=== PATIENT | female | born 1940 | race Caucasian/White ===

== ENCOUNTER 2019-11-14 14:46 | Outpatient (CLI) | payer MEDICARE, SELFPAY ==
--- NOTE | ~2019-11-14 | CT_ITS ---
EXAMINATION: CT brain wo con EXAM DATE: 11/14/2019 15:08 INDICATION: Severe temporal headache. Anticoagulated. TECHNIQUE: Spiral CT of the head was performed without contrast. Axial, coronal and sagittal images were reviewed. The dose-length product (DLP) for this examination was 605.33 mGy-cm. The exposure w as tailored according to patient size, and iterative reconstruction (ASIR) was used as additional dos e reduction technique. There is no prior study for comparison. FINDINGS: There is no acute intraparenchymal hemorrhage. No evidence of intraparenchymal brain mass lesion. No evidence of acute infarction. Please note that initial head CT has limited sensitivity f or small or acute infarctions. 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 There is mild periventricular and subcortical hypodensity, nonspecific but probably related to small vessel ischemic disease. There is mild prominence of the sulci and ventricles related to cer ebral atrophy. There is intracranial carotid arteriosclerosis. There are no extra-axial collection s. There is no mass effect or midline shift. Patient has had bilateral ocular lens surgery. Soft t issue is unremarkable. The visualized sinuses and mastoid air cells are well aerated. IMPRESSION: 1. No acute intracranial findings. 2. Chronic age related findings. 3. 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 Reviewed, dictated and finalized at location A. EW APPRAISER
[2019-11-14 15:00] LABS: Hematocrit 39.3 % (35.0-42.0); Hemoglobin 12.9 g/dL (11.7-13.8); Mean Corpuscular HGB Conc 32.8 g/dL (32.0-36.0); Mean Corpuscular Hemoglobin 33.5 pg (27.0-31.0); Mean Corpuscular Volume 102.1 fL (78.0-102.0); Mean Platelet Volume 10.7 fl (9.2-11.8); Platelet Count Result 212 K/mm3 (150-420); Red Blood Count 3.85 M/mm3 (4.20-5.40); Red Cell Distribution Width 13.1 % (11.6-14.4); White Blood Count 6.4 K/mm3 (4.8-10.8)
[2019-11-14 15:12] LABS: INR 1.8; Prothrombin Time 18.1 Seconds (9.64-11.0)
[2019-11-14 15:13] LABS: Hemoglobin A1C 6.7 % (<5.7)
[2019-11-14 15:18] LABS: Alanine Aminotransferase 18 U/L (14-59); Albumin Level 3.6 g/dL (3.4-5.0); Alkaline Phosphatase 77 U/L (46-116); Anion Gap 13.4 mmol/L (7-16); Aspartate Amino Transferase 22 U/L (15-37); Bilirubin,Total 0.5 mg/dL (0.00-1.00); Blood Urea Nitrogen 38 mg/dL (7-18); Calcium 8.7 mg/dL (8.5-10.1); Carbon Dioxide 28 mmol/L (21-32); Chloride 108 mmol/L (98-108); Estimated Glomerular Filt Rate 25; Glucose 110 mg/dL (70-99); Osmolality Calculated 310 mOsm/kg (285-295); Potassium 4.4 mmol/L (3.5-5.1); Sodium 145 mmol/L (136-145); Total Protein 7.7 g/dL (6.4-8.2)
[2019-11-14 15:23] LABS: CRP < 0.2 mg/dL (0.0-0.9)
[2019-11-14 15:27] LABS: Band Neutrophils Percent 1 % (0-6); Basophils Absolute Manual 0.06 K/mm3 (0-0.1); Basophils Percent Manual 1 % (0-1); Eosinophils Absolute Manual 1.21 K/mm3 (0.02-0.5); Eosinophils Percent Manual 19 % (1-6); Lymphocytes Absolute Manual 1.85 K/mm3 (1.1-4.5); Lymphocytes Percent Manual 29 % (18-44); Monocytes Absolute Manual 0.64 K/mm3 (0.1-0.90); Monocytes Percent Manual 10 % (3-9); Neutrophils Absolute Manual 2.62 K/mm3 (1.7-7.2); Neutrophils Percent Manual 40 % (46-73); Total Cells Counted 100
[2019-11-14 15:28] LABS: Platelet Estimate Adequate (Adequate)
== END 2019-11-14 14:47 | disposition home or self-care (01) ==
LOC: CHSLAB 14:49
PROVIDERS: PCP Internal Medicine; Visit Provider Internal Medicine
DX: R51 Headache (principal); I25.10 Atherosclerotic heart disease of native coronary artery without angina pectoris; Z79.01 Long term (current) use of anticoagulants; E11.9 Type 2 diabetes mellitus without complications
CPT/HCPCS: 36415; 70450; 80053; 83036; 85025; 85610; 86140

== ENCOUNTER 2019-12-02 09:01 | Outpatient (RCR) | payer MEDICARE, SELFPAY ==
[2019-09-08 11:49] LABS: INR 2.2; Prothrombin Time 23.2 Seconds (9.64-11.0)
[2019-11-03 11:16] LABS: INR 1.2
[2019-12-02 09:32] LABS: Prothrombin Time 29.6 Seconds (9.64-11.0)
== END 2019-12-07 23:59 | disposition home or self-care (01) ==
LOC: CHSLAB 09:01
PROVIDERS: PCP Internal Medicine; Visit Provider Internal Medicine
DX: Z79.01 Long term (current) use of anticoagulants (principal)
CPT/HCPCS: 36415; 85610

== ENCOUNTER → 2020-10-30 01:02 | Outpatient (CLI) | payer MEDICARE, SELFPAY ==
[2020-10-30 20:39] LABS: SARS-CoV-2 RNA PCR Negative
== END ==
PROVIDERS: PCP Internal Medicine; Visit Provider Internal Medicine Gastroenterology
DX: Z01.812 Encounter for preprocedural laboratory examination (principal); Z20.822 Contact with and (suspected) exposure to COVID-19
CPT/HCPCS: C9803; U0003; U0005

== ENCOUNTER 2020-11-02 02:02 | Day surgery (SDC) | payer MEDICARE, SELFPAY ==
[2020-10-08 14:55] VITALS: BMI 29.9
--- NOTE | 2020-10-12 10:29 | PC.NURSE ---
CONSULT FORM RECEIVED FROM DR. LOUIE- PT NOT TO STOP PLAVIX DUE TO HAVING NEW CARDIAC STENT PLACEMENT 08/2020, INFORMED DR. AHMADI AND HE STATES PT TO REMAIN ON PLAVIX AND HE WILL PROCEED WITH PROCEDURES. PT AND SPOUSE KAMINI CALLED, SPOKE WITH KAMINI, HE TAKES CARE OF HER MEDICATIONS, HE WAS INFORMED NOT TO STOP PLAVIX AND WE WILL PROCEED WITH PROCEDURES WITH HER STILL ON PLAVIX.
[2020-11-02 06:30] VITALS: BP 162/78; PULSE 63; RESP 16; TEMP 36.9; O2SAT 97
[2020-11-02] MEDS: LACTATED RINGERS 1,000 ML 150 ML IV CONT (06:41)
[2020-11-02 06:46] LABS: Glucose Point of Care 97 (65-105)
--- NOTE | 2020-11-02 06:53 | P.PNAN_ITS ---
Anes - Initial Pre Proc Eval Procedure: Operation Date: 11/02/20 07:30 Proposed Procedures p Esophagogastroduodenoscopy & Colonoscopy - Robe Chan MD Date/Time: 11/02/20 06:53 Surgeon: Robe Chan MD Pre Op Diagnosis: Anemia, Rectal Bleeding Patient Data Age: 80 Gender: F Height: 5 ft 5.5 in Weight: 80.6 kg Last Vital Signs Temp 36.9 C 11/02/20 06:30 Pulse 63 11/02/20 06:30 Resp 16 11/02/20 06:30 BP 162/78 H 11/02/20 06:30 Pulse Ox 97 11/02/20 06:30 Allergies Allergy/AdvReac Type Severity Reaction Status Date / Time adhesive tape Allergy Intermediate Rash Verified 11/02/20 06:26 Home Medications Medication Instructions Recorded Confirmed Type atorvastatin 40 mg PO HS 10/08/20 11/02/20 History clopidogrel 75 mg PO DAILY 10/08/20 11/02/20 History dulaglutide [Trulicity] 1.5 mg SUBCUT WEEKLY 10/08/20 11/02/20 History estradiol 1 applic VAGINAL DAILY 10/08/20 11/02/20 History fentanyl 1 patch TRANSDERMAL Q72H 10/08/20 11/02/20 History furosemide 20 mg PO BID 10/08/20 11/02/20 History insulin glargine U-300 conc 40 unit SUBCUT HS 10/08/20 11/02/20 History [Toujeo SoloStar U-300 Insulin] isosorbide mononitrate 30 mg PO BID 10/08/20 11/02/20 History metoprolol succinate 25 mg PO HS 10/08/20 11/02/20 History omeprazole 40 mg PO DAILY 10/08/20 11/02/20 History paroxetine HCl 10 mg PO DAILY 10/08/20 11/02/20 History ropinirole 2 mg PO BID 10/08/20 11/02/20 History Laboratory Tests 11/02/20 06:43 POC Capillary Glucose 97 mg/dl mg/dl (65-105) Patient hx anesthesia problems: none Family hx anesthesia problems: [facility] Past Medical History Medical History (Updated 11/02/20 @ 06:53 by Tramaine Irwin MD) CAD (coronary artery disease) Diabetes HTN (hypertension) Hyperlipidemia Social History Social History Smoking status: Never smoker Alcohol intake: never Substance use: never Substance use type: does not use Living arrangements: with family Spiritual care concerns: No Anes - Eval Final PreProcedure Day of Procedure 11/02/20 06:53 Patient weight: obese Heart: regular rate and rhythm Lungs: clear to auscultation Airway: Mallampati scale class II Neurological: alert and oriented Last oral intake: >/= 8 hours ASA classification: IV Emergent: no Anesthetic plan: proceed Anesthesia type and monitoring: general GIVS and standard monitoring Informed Consent: The patient's anesthetic plan and its attendant risks and benefits were discussed with the patient/family/POA. Questions were solicited and answers provided to the satisfaction of the patient/family/POA.
--- NOTE | 2020-11-02 07:24 | SUR.PREOP ---
PT HAS MULTIPLE SMALL DOG BITES ON BILATERAL ARMS
--- NOTE | 2020-11-02 07:59 | PM.HPGS ---
History of Present Illness History of Present Illness Consent: Risks, benefits, and alternatives have been discussed and questions answered. Patient agrees to proceed with procedure. Chief complaint: Anemia, Rectal Bleeding Narrative: Ami Da Silva is a 80 year old female with anemia, denies obvious gib but last colonoscopy over 15 years ago Review of Systems Constitutional: Constitutional: Denies headache(s) and Denies weakness Eyes: Eyes: Denies blurry vision ENT: Reports Normal hearing present, Denies headache(s) and Denies neck pain Cardiovascular: Cardiovascular: Denies chest pain and Denies dyspnea Respiratory: Respiratory: Denies dyspnea Gastrointestinal: Gastrointestinal: Reports no additional gastrointestinal complaints Genitourinary: Genitourinary: Denies dysuria Musculoskeletal: Musculoskeletal: Denies neck pain Integumentary/Breasts: Skin/Breast: Denies dry skin Neurologic: Reports Normal hearing present, Denies headache(s) and Denies weakness Psychiatric: Psychiatric: Denies anxiety Endocrine: Endocrine: Denies change in body appearance Hematologic/Lymphatic: Hematologic/Lymphatic: Denies easy bleeding Allergic/Immunologic: Allergic/Immunologic: Denies urticaria PMFSH Past Medical History Medical History (Updated 11/02/20 @ 08:00 by Robe Chan MD) CAD (coronary artery disease) Diabetes HTN (hypertension) Hyperlipidemia Iron deficiency anemia Social History Social History Smoking status: Never smoker Alcohol intake: never Substance use: never Substance use type: does not use Living arrangements: with family Spiritual care concerns: No Meds Home Medications and Allergies Home Medications Medication Instructions Recorded Confirmed Type atorvastatin 40 mg PO HS 10/08/20 11/02/20 History clopidogrel 75 mg PO DAILY 10/08/20 11/02/20 History dulaglutide [Trulicity] 1.5 mg SUBCUT WEEKLY 10/08/20 11/02/20 History estradiol 1 applic VAGINAL DAILY 10/08/20 11/02/20 History fentanyl 1 patch TRANSDERMAL Q72H 10/08/20 11/02/20 History furosemide 20 mg PO BID 10/08/20 11/02/20 History insulin glargine U-300 conc 40 unit SUBCUT HS 10/08/20 11/02/20 History [Peter Nunez U-300 Insulin] isosorbide mononitrate 30 mg PO BID 10/08/20 11/02/20 History metoprolol succinate 25 mg PO HS 10/08/20 11/02/20 History omeprazole 40 mg PO DAILY 10/08/20 11/02/20 History paroxetine HCl 10 mg PO DAILY 10/08/20 11/02/20 History ropinirole 2 mg PO BID 10/08/20 11/02/20 History Allergies Allergy/AdvReac Type Severity Reaction Status Date / Time adhesive tape Allergy Intermediate Rash Verified 11/02/20 06:26 Vital Signs Vital Signs - 24 hr 11/02/20 06:30 Temperature 98.4 F Pulse Rate 63 Respiratory Rate 16 Blood Pressure 162/78 H Pulse Oximetry 97 Exam Const: General: comfortable and no acute distress HENMT: General nose exam: Normal nares present Eyes: General: appearance normal, both eyes and all related structures Neck: Neck: no JVD Resp: Auscultation: clear to auscultation bilaterally Cardio: Rate: regular rate Rhythm: regular rhythm GI: Inspection: non-distended GI Palp: Yes Soft to palpation Skin: General skin exam: normal color Neuro: General: gait normal Speech: normal speech Extrem: General: normal to inspection Psych: Mental Status: mental status grossly normal Assessment and Plan Assessment and plan (1) Iron deficiency anemia: Code(s): D50.9 - Iron deficiency anemia, unspecified Status: Acute Assessment and Plan: egd and colonoscopy to assess for gi blood loss
[2020-11-02 08:27] VITALS: BP 142/76; PULSE 62; RESP 18; O2SAT 98
[2020-11-02 08:37] VITALS: BP 145/83; PULSE 63; RESP 20; O2SAT 100
[2020-11-02 08:46] VITALS: BP 152/98; PULSE 61; RESP 21; O2SAT 100
[2020-11-02 08:46] LABS: Glucose Point of Care 76 (65-105)
== END 2020-11-02 09:08 | disposition home or self-care (01) ==
PROVIDERS: PCP Internal Medicine; Visit Provider Internal Medicine Gastroenterology
PROC: 0DJ08ZZ Inspection of Upper Intestinal Tract, Via Natural or Artificial Opening Endoscopic (ICD-10-PCS; CPT 43235; principal; 2020-11-02 07:30)
DX: D50.9 Iron deficiency anemia, unspecified (principal); K29.50 Unspecified chronic gastritis without bleeding; K63.5 Polyp of colon; K44.9 Diaphragmatic hernia without obstruction or gangrene; K57.30 Diverticulosis of large intestine without perforation or abscess without bleeding; K64.8 Other hemorrhoids; I25.10 Atherosclerotic heart disease of native coronary artery without angina pectoris; E11.9 Type 2 diabetes mellitus without complications; I10 Essential (primary) hypertension; E78.5 Hyperlipidemia, unspecified
CPT/HCPCS: 43239; 45385; 82948; 88305; C9803; J2704; J7120; U0003; U0005

== ENCOUNTER 2021-01-26 09:06 | Outpatient (CLI) | payer MEDICARE, SELFPAY ==
[2021-01-26 09:19] LABS: Basophils Absolute Auto 0.08 K/mm3 (0.00-0.10); Basophils Percent Auto 1.5 % (0.0-1.0); Eosinophils Absolute Auto 0.32 K/mm3 (0.02-0.50); Eosinophils Percent Auto 5.9 % (1.0-6.0); Hematocrit 33.6 % (35.0-42.0); Hemoglobin 10.8 g/dL (11.7-13.8); Immature Granulocyte Absolute 0.05 K/mm3 (0.00-0.00); Immature Granulocyte Percent A 0.9 % (0.0-0.0); Lymphocytes Absolute Auto 1.11 K/mm3 (1.10-4.50); Lymphocytes Percent Auto 20.4 % (18.0-42.0); Mean Corpuscular HGB Conc 32.1 g/dL (32.0-36.0); Mean Corpuscular Hemoglobin 33.5 pg (27.0-31.0); Mean Corpuscular Volume 104.3 fL (78.0-102.0); Mean Platelet Volume 10.4 fl (9.2-11.8); Monocytes Absolute Auto 0.58 K/mm3 (0.10-0.90); Monocytes Percent Auto 10.7 % (2.0-11.0); Neutrophils Absolute Auto 3.3 K/mm3 (1.7-7.2); Neutrophils Percent Auto 60.6 % (50.0-70.0); Platelet Count Result 183 K/mm3 (150-420); Red Blood Count 3.22 M/mm3 (4.20-5.40); Red Cell Distribution Width 13.1 % (11.6-14.4); White Blood Count 5.4 K/mm3 (4.8-10.8)
[2021-01-26 09:29] LABS: Hemoglobin A1C 6.9 % (<5.7)
[2021-01-26 09:49] LABS: Alanine Aminotransferase 24 U/L (14-59); Alkaline Phosphatase 82 U/L (46-116); Anion Gap 7 mmol/L (8-16); Aspartate Amino Transferase 19 U/L (15-37); Bilirubin,Total 0.8 mg/dL (0.00-1.00); Blood Urea Nitrogen 31 mg/dL (7-18); Calcium 8.7 mg/dL (8.5-10.1); Carbon Dioxide 29 mmol/L (21-32); Chloride 106 mmol/L (98-108); Estimated Glomerular Filt Rate 24; Glucose 98 mg/dL (70-99); NT Pro B Type Natriuretic Pept 2829 pg/mL (0-450); Osmolality Calculated 300 mOsm/kg (285-295); Potassium 4.2 mmol/L (3.5-5.1); Sodium 142 mmol/L (136-145); Total Protein 6.6 g/dL (6.4-8.2)
== END 2021-01-26 09:07 | disposition home or self-care (01) ==
LOC: CHSLAB 09:09
PROVIDERS: PCP Internal Medicine; Visit Provider Internal Medicine
DX: E11.9 Type 2 diabetes mellitus without complications (principal); R06.00 Dyspnea, unspecified; I10 Essential (primary) hypertension; E83.51 Hypocalcemia
CPT/HCPCS: 36415; 80053; 83036; 83880; 85025

== ENCOUNTER 2021-03-22 11:44 | Outpatient (CLI) | payer MEDICARE, SELFPAY ==
--- NOTE | ~2021-03-22 | XR_ITS ---
EXAMINATION: XR chest 2V DATE: 03/22/2021 12:17 INDICATION: Cough and right-sided chest pain TECHNIQUE: PA and lateral views of the chest were obtained. COMPARISON: None FINDINGS: Eventration of the anterior right hemidiaphragm. Mild streaky atelectasis at the left lung base. No o ther airspace opacities, pulmonary edema, pleural effusion or pneumothorax. The cardiomediastinal sanam houette is normal. Coronary artery stenting. Cholecystectomy clips in right upper quadrant. L2 burst fracture with change of prior vertebroplasty. Additional compression fractures with moderate anterior vertebral body height loss at T11 and T12. IMPRESSION: 1. Eventration of the anterior right hemidiaphragm and mild streaky left basilar atelectasis. Reviewed, dictated and finalized at location A. IMPRESSION: 1. Eventration of the anterior right hemidiaphragm and mild streaky left basila r atelectasis.
[2021-03-22 12:09] LABS: Hemoglobin 11.2 g/dL (11.7-13.8); Mean Corpuscular Hemoglobin 33.1 pg (27.0-31.0); Mean Corpuscular Volume 103.6 fL (78.0-102.0); Mean Platelet Volume 10.5 fl (9.2-11.8); Platelet Count Result 231 K/mm3 (150-420); Red Blood Count 3.38 M/mm3 (4.20-5.40); Red Cell Distribution Width 12.9 % (11.6-14.4); White Blood Count 6.1 K/mm3 (4.8-10.8)
[2021-03-22 12:41] LABS: Band Neutrophils Percent 0 % (0-6); Eosinophils Absolute Manual 0.67 K/mm3 (0.02-0.5); Eosinophils Percent Manual 11 % (1-6); Lymphocytes Absolute Manual 1.34 K/mm3 (1.1-4.5); Lymphocytes Percent Manual 22 % (18-44); Monocytes Absolute Manual 0.73 K/mm3 (0.1-0.90); Monocytes Percent Manual 12 % (3-9); Neutrophils Absolute Manual 3.35 K/mm3 (1.7-7.2); Neutrophils Percent Manual 55 % (46-73); Platelet Estimate Adequate (Adequate); Total Cells Counted 100
[2021-03-22 12:45] LABS: Alanine Aminotransferase 19 U/L (14-59); Albumin Level 3.1 g/dL (3.4-5.0); Alkaline Phosphatase 103 U/L (46-116); Anion Gap 9 mmol/L (8-16); Aspartate Amino Transferase 22 U/L (15-37); Bilirubin,Total 0.7 mg/dL (0.00-1.00); Blood Urea Nitrogen 30 mg/dL (7-18); Calcium 8.7 mg/dL (8.5-10.1); Carbon Dioxide 29 mmol/L (21-32); Chloride 105 mmol/L (98-108); Estimated Glomerular Filt Rate 28; Glucose 89 mg/dL (70-99); Osmolality Calculated 301 mOsm/kg (285-295); Potassium 4.3 mmol/L (3.5-5.1); Sodium 143 mmol/L (136-145); Thyroid Stimulating Hormone 2.42 uIU/mL (0.36-3.74); Total Protein 6.2 g/dL (6.4-8.2)
[2021-03-22 13:34] LABS: NT Pro B Type Natriuretic Pept 2971 pg/mL (0-450)
[2021-03-26 16:39] LABS: Albumin 3.2 g/dL (3.8-4.8); Alpha 1 Globulin 0.4 g/dL (0.2-0.3); Alpha 2 Globulin 0.9 g/dL (0.5-0.9); Beta 1 Globulin 0.4 g/dL (0.4-0.6); Gamma Globulin 0.9 g/dL (0.8-1.7)
== END 2021-03-22 11:45 | disposition home or self-care (01) ==
LOC: CHSLAB 11:47
PROVIDERS: PCP Internal Medicine; Visit Provider Internal Medicine
DX: R07.9 Chest pain, unspecified (principal); R05 Cough; D64.9 Anemia, unspecified; N18.9 Chronic kidney disease, unspecified; I50.9 Heart failure, unspecified
CPT/HCPCS: 36415; 71046; 80053; 83880; 84155; 84165; 84443; 85025; 86334

== ENCOUNTER 2021-03-24 10:06 | Outpatient (CLI) | payer MEDICARE, SELFPAY ==
--- NOTE | ~2021-03-24 | CT_ITS ---
EXAMINATION: CT diagnostic chest wo con DATE: 03/24/2021 10:32 INDICATION: Cough and shortness of breath TECHNIQUE: Computed tomography (CT) of the chest was performed without intravenous contrast. The dose -length product (DLP) was 220.71 mGy-cm. Automated exposure control and iterative reconstruction tech nique were employed. COMPARISON: None FINDINGS: There is a 3 mm nodule adjacent to the major fissure in the right upper lobe on image 34. A 3 mm nodule is present in the medial left upper lobe on image 24. There are additional scattered 1 t o 2 mm nodules are noted. There is mild dependent atelectasis. There is no pleural effusion or pneumo thorax. Mild dependent atelectasis is noted. There are no pathologically enlarged thoracic lymph node s. Cardiomegaly is noted. There are coronary artery stents. The gallbladder is surgically absent. The re are bridging osteophytes at multiple levels in the spine, consistent with diffuse idiopathic skele erika hyperostosis (DISH). IMPRESSION: 1. No CT correlate for the patient's symptoms. 2. Scattered pulmonary nodules measuring up to 3 mm, likely old granulomatous disease. Consider follo w-up CT in 12 months. Reviewed, dictated and finalized at location B. IMPRESSION: 1. No CT correlate for the patient's symptoms. 2. Scattered pulmonary nodules measuring up to 3 mm, likely old granulomatous d isease. Consider follow-up CT in 12 months.
== END 2021-03-24 10:07 | disposition home or self-care (01) ==
LOC: CHSIMG 10:07
PROVIDERS: PCP Internal Medicine; Visit Provider Internal Medicine
DX: R06.02 Shortness of breath (principal)
CPT/HCPCS: 71250

== ENCOUNTER 2021-05-02 11:55 | Outpatient (CLI) | payer MEDICARE, SELFPAY ==
[2021-05-02 12:21] LABS: Hematocrit 34.3 % (35.0-42.0); Hemoglobin 10.9 g/dL (11.7-13.8); Mean Corpuscular HGB Conc 31.8 g/dL (32.0-36.0); Mean Corpuscular Volume 100.6 fL (78.0-102.0); Platelet Count Result 209 K/mm3 (150-420); Red Blood Count 3.41 M/mm3 (4.20-5.40); Red Cell Distribution Width 13.6 % (11.6-14.4); White Blood Count 5.4 K/mm3 (4.8-10.8)
[2021-05-02 12:43] LABS: Alanine Aminotransferase 14 U/L (14-59); Albumin Level 3.3 g/dL (3.4-5.0); Alkaline Phosphatase 111 U/L (46-116); Anion Gap 8 mmol/L (8-16); Aspartate Amino Transferase 25 U/L (15-37); Bilirubin,Total 0.7 mg/dL (0.00-1.00); Blood Urea Nitrogen 25 mg/dL (7-18); Calcium 9.3 mg/dL (8.5-10.1); Carbon Dioxide 32 mmol/L (21-32); Chloride 105 mmol/L (98-108); Estimated Glomerular Filt Rate 29; Glucose 88 mg/dL (70-99); NT Pro B Type Natriuretic Pept 3409 pg/mL (0-450); Osmolality Calculated 303 mOsm/kg (285-295); Potassium 4.3 mmol/L (3.5-5.1); Sodium 145 mmol/L (136-145); Total Protein 7.1 g/dL (6.4-8.2)
[2021-05-02 13:11] LABS: Band Neutrophils Percent 1 % (0-6); Neutrophils Absolute Manual 2.86 K/mm3 (1.7-7.2); Neutrophils Percent Manual 52 % (46-73); Total Cells Counted 100
[2021-05-02 13:12] LABS: Eosinophils Absolute Manual 0.59 K/mm3 (0.02-0.5); Eosinophils Percent Manual 11 % (1-6); Lymphocytes Absolute Manual 1.51 K/mm3 (1.1-4.5); Lymphocytes Percent Manual 28 % (18-44); Monocytes Absolute Manual 0.43 K/mm3 (0.1-0.90); Monocytes Percent Manual 8 % (3-9); Platelet Estimate Adequate (Adequate)
[2021-05-02 13:59] LABS: Hemoglobin A1C 5.5 % (<5.7)
[2021-05-04 20:08] LABS: SARS-CoV-2 IgG <1.00 Index (<1.00)
== END 2021-05-02 11:56 | disposition home or self-care (01) ==
LOC: CHSLAB 11:58
PROVIDERS: PCP Internal Medicine; Visit Provider Internal Medicine
DX: I50.9 Heart failure, unspecified (principal); E11.9 Type 2 diabetes mellitus without complications; Z01.84 Encounter for antibody response examination
CPT/HCPCS: 36415; 80053; 83036; 83880; 85025; 86769

== ENCOUNTER 2021-05-24 08:21 | Outpatient (CLI) | payer MEDICARE, SELFPAY ==
--- NOTE | ~2021-05-24 | XR_ITS ---
EXAMINATION: XR barium swallow EXAM DATE: 05/24/2021 08:56 INDICATION: Dysphagia . Symptoms developing over last month. TECHNIQUE: Standard thick followed by thin contrast barium esophagram examination was performed by Dr Nasreen Keys, radiologist. Pulsed dose reduction fluoroscopy was used with fluoroscopic time of 0.6 minutes. The DAP for this procedure was 3.6 Gycm2. A total of 461 images obtained for the exam. Co rrelation is made to CT chest 03/24/2021. FINDINGS: The pharynx is symmetric and without evidence of mass lesion or mucosal irregularity. Ther e is no esophageal stricture or mass identified. There are no esophageal diverticula. There are poor primary and secondary contractions, with moderate tertiary contractions, presbyesophagus distally. N o reflux or gastroesophageal hiatal hernia demonstrated. IMPRESSION: Moderate presbyesophagus. Reviewed, dictated and finalized at location D. IMPRESSION: Moderate presbyesophagus.
== END 2021-05-24 08:22 | disposition home or self-care (01) ==
LOC: CHSIMG 08:23
PROVIDERS: PCP Internal Medicine; Visit Provider Internal Medicine
DX: R13.10 Dysphagia, unspecified (principal)
CPT/HCPCS: 74220

== ENCOUNTER → 2021-06-11 00:37 | Outpatient (CLI) | payer MEDICARE, SELFPAY ==
[2021-06-11 18:08] LABS: SARS-CoV-2 RNA PCR Negative
== END ==
PROVIDERS: PCP Internal Medicine; Visit Provider Internal Medicine Gastroenterology
DX: Z01.812 Encounter for preprocedural laboratory examination (principal); Z20.822 Contact with and (suspected) exposure to COVID-19
CPT/HCPCS: C9803; U0003; U0005

== ENCOUNTER 2021-06-15 01:23 | Day surgery (SDC) | payer MEDICARE, SELFPAY ==
[2021-06-07 11:58] VITALS: BMI 26.9
[2021-06-15 06:58] VITALS: BP 137/62; PULSE 50; RESP 16; TEMP 36.1; O2SAT 98; BMI 25.4
--- NOTE | 2021-06-15 07:04 | P.PNAN_ITS ---
Anes - Initial Pre Proc Eval Procedure: Operation Date: 06/15/21 08:00 Proposed Procedures p Esophagogastroduodenoscopy - Robe Chan MD Date/Time: 06/15/21 07:04 Surgeon: Robe Chan MD Pre Op Diagnosis: dysphagia Patient Data Age: 80 Gender: F Height: 1.7 m Weight: 73.9 kg Last Vital Signs Temp 36.1 C L 06/15/21 06:58 Pulse 50 L 06/15/21 06:58 Resp 16 06/15/21 06:58 BP 137/62 06/15/21 06:58 Pulse Ox 98 06/15/21 06:58 Allergies Allergy/AdvReac Type Severity Reaction Status Date / Time adhesive tape Allergy Intermediate Rash Verified 06/15/21 06:55 Home Medications Medication Instructions Recorded Confirmed Type atorvastatin 40 mg PO HS 10/08/20 06/07/21 History clopidogrel 75 mg PO DAILY 10/08/20 06/07/21 History dulaglutide [Trulicity] 1.5 mg SUBCUT WEEKLY 10/08/20 06/07/21 History furosemide 20 mg PO BID 10/08/20 06/07/21 History insulin glargine U-300 conc 25 unit SUBCUT HS 10/08/20 06/07/21 History [Toujeo SoloStar U-300 Insulin] isosorbide mononitrate 30 mg PO BID 10/08/20 06/07/21 History metoprolol succinate 25 mg PO HS 10/08/20 06/07/21 History omeprazole 40 mg PO DAILY 10/08/20 06/07/21 History paroxetine HCl 10 mg PO DAILY 10/08/20 06/07/21 History ropinirole 2 mg PO BID 10/08/20 06/07/21 History fentanyl 1 patch TOPICAL Q72H 06/07/21 06/07/21 History Patient hx anesthesia problems: none Family hx anesthesia problems: none [facility] Past Medical History Medical History (Updated 06/15/21 @ 07:07 by Latrell Arvizu MD) Anxiety CAD (coronary artery disease) CHF (congestive heart failure) Chronic GERD Diabetes HTN (hypertension) Hyperlipidemia Iron deficiency anemia GOVIND on CPAP Osteoarthritis Pulmonary embolism TIA (transient ischemic attack) Surgical History Surgical History (Updated 06/15/21 @ 07:07 by Latrell Arvizu MD) History of coronary artery stent placement Social History Social History Smoking status: Never smoker Alcohol intake: never Substance use: never Substance use type: does not use Living arrangements: with family Spiritual care concerns: No Anes - Eval Final PreProcedure Day of Procedure 06/15/21 07:04 Patient weight: normal Heart: regular rate and rhythm Lungs: clear to auscultation and normal air movement Airway: Mallampati scale class II Neurological: alert and oriented Last oral intake: >/= 8 hours ASA classification: IV Emergent: no Anesthetic plan: proceed Anesthesia type and monitoring: general GIVS Informed Consent: The patient's anesthetic plan and its attendant risks and benefits were discussed with the patient/family/POA. Questions were solicited and answers provided to the satisfaction of the patient/family/POA.
[2021-06-15] MEDS: LACTATED RINGERS 1,000 ML 150 ML IV CONT (07:16)
[2021-06-15 07:24] LABS: Glucose Point of Care 102 mg/dl (65-105)
[2021-06-15 07:24] LABS: Glucose Point of Care 48 mg/dl (65-105)
--- NOTE | 2021-06-15 07:48 | PM.HPGS ---
History of Present Illness History of Present Illness Consent: Risks, benefits, and alternatives have been discussed and questions answered. Patient agrees to proceed with procedure. Chief complaint: dysphagia Narrative: Ami Da Silva is a 80 year old female with dysphagia for almost 3 weeks, feeling that solids getting stuck at throat level. Had EGD and colonoscopy months ago because anemia. Review of Systems Constitutional: Constitutional: Denies headache(s) and Denies weakness Eyes: Eyes: Denies blurry vision ENT: Reports Normal hearing present, Denies headache(s) and Denies neck pain Cardiovascular: Cardiovascular: Denies chest pain and Denies dyspnea Respiratory: Respiratory: Denies dyspnea Gastrointestinal: Gastrointestinal: Reports no additional gastrointestinal complaints Genitourinary: Genitourinary: Denies dysuria Musculoskeletal: Musculoskeletal: Denies neck pain Integumentary/Breasts: Skin/Breast: Denies dry skin Neurologic: Reports Normal hearing present, Denies headache(s) and Denies weakness Psychiatric: Psychiatric: Denies anxiety Endocrine: Endocrine: Denies change in body appearance Hematologic/Lymphatic: Hematologic/Lymphatic: Denies easy bleeding Allergic/Immunologic: Allergic/Immunologic: Denies urticaria PMFSH Past Medical History Medical History (Updated 06/15/21 @ 07:49 by Robe Chan MD) Anxiety CAD (coronary artery disease) CHF (congestive heart failure) Chronic GERD Diabetes Dysphagia HTN (hypertension) Hyperlipidemia Iron deficiency anemia GOVIND on CPAP Osteoarthritis Pulmonary embolism TIA (transient ischemic attack) Surgical History Surgical History (Updated 06/15/21 @ 07:07 by Latrell Arvizu MD) History of coronary artery stent placement Social History Social History Smoking status: Never smoker Alcohol intake: never Substance use: never Substance use type: does not use Living arrangements: with family Spiritual care concerns: No Meds Home Medications and Allergies Home Medications Medication Instructions Recorded Confirmed Type atorvastatin 40 mg PO HS 10/08/20 06/07/21 History clopidogrel 75 mg PO DAILY 10/08/20 06/07/21 History dulaglutide [Trulicity] 1.5 mg SUBCUT WEEKLY 10/08/20 06/07/21 History furosemide 20 mg PO BID 10/08/20 06/07/21 History insulin glargine U-300 conc 25 unit SUBCUT HS 10/08/20 06/07/21 History [Toujeo SolIlenemichael U-300 Insulin] isosorbide mononitrate 30 mg PO BID 10/08/20 06/07/21 History metoprolol succinate 25 mg PO HS 10/08/20 06/07/21 History omeprazole 40 mg PO DAILY 10/08/20 06/07/21 History paroxetine HCl 10 mg PO DAILY 10/08/20 06/07/21 History ropinirole 2 mg PO BID 10/08/20 06/07/21 History fentanyl 1 patch TOPICAL Q72H 06/07/21 06/07/21 History Allergies Allergy/AdvReac Type Severity Reaction Status Date / Time adhesive tape Allergy Intermediate Rash Verified 06/15/21 06:55 Vital Signs Vital Signs - 24 hr 06/15/21 06:58 Temperature 96.9 F L Pulse Rate 50 L Respiratory Rate 16 Blood Pressure 137/62 Pulse Oximetry 98 Exam Const: General: comfortable and no acute distress HENMT: General nose exam: Normal nares present Eyes: General: appearance normal, both eyes and all related structures Neck: Neck: no JVD Resp: Auscultation: clear to auscultation bilaterally Cardio: Rate: regular rate Rhythm: regular rhythm GI: Inspection: non-distended GI Palp: Yes Soft to palpation Skin: General skin exam: normal color Neuro: General: gait normal Speech: normal speech Extrem: General: normal to inspection Psych: Mental Status: mental status grossly normal Assessment and Plan Assessment and plan (1) Dysphagia: Code(s): R13.10 - Dysphagia, unspecified Status: Acute Assessment and Plan: egd to assess
[2021-06-15 08:06] VITALS: BP 89/51; PULSE 49; RESP 16; O2SAT 100
[2021-06-15 08:16] VITALS: BP 86/45; PULSE 49; RESP 14; O2SAT 100
[2021-06-15 08:26] VITALS: BP 143/71; PULSE 50; RESP 18; O2SAT 100
== END 2021-06-15 08:42 | disposition home or self-care (01) ==
PROVIDERS: PCP Internal Medicine; Visit Provider Internal Medicine Gastroenterology
PROC: 0DJ08ZZ Inspection of Upper Intestinal Tract, Via Natural or Artificial Opening Endoscopic (ICD-10-PCS; CPT 43235; principal; 2021-06-15 08:00)
DX: R13.10 Dysphagia, unspecified (principal); K29.50 Unspecified chronic gastritis without bleeding; I25.10 Atherosclerotic heart disease of native coronary artery without angina pectoris; I11.0 Hypertensive heart disease with heart failure; I50.9 Heart failure, unspecified; E78.5 Hyperlipidemia, unspecified; D50.9 Iron deficiency anemia, unspecified; G47.33 Obstructive sleep apnea (adult) (pediatric); F41.9 Anxiety disorder, unspecified; K21.9 Gastro-esophageal reflux disease without esophagitis; M19.90 Unspecified osteoarthritis, unspecified site; Z86.73 Personal history of transient ischemic attack (TIA), and cerebral infarction without residual deficits; Z86.711 Personal history of pulmonary embolism; Z79.02 Long term (current) use of antithrombotics/antiplatelets; Z79.4 Long term (current) use of insulin; Z95.5 Presence of coronary angioplasty implant and graft
CPT/HCPCS: 43248; 82948; 88305; 88342; C9803; J2704; J7120; U0003; U0005

== ENCOUNTER 2021-08-25 11:00 | Outpatient (RCR) | payer MEDICARE, SELFPAY ==
--- NOTE | 2021-07-28 12:03 | STOPEVAL ---
Thank you for referring Ami Da Silva to [facility].? The patient is scheduled to be seen for therapy? 1x/week for 10 sessions. Please review, sign, date and return this plan of care CONRAD. I agree with and certify that the following plan of care is medically necessary. Referring Physician Date Admitting Provider: Attending Provider: Jeferson Sanders MD Referring Provider: LYNDON Outpatient Evaluation Start: 07/28/21 11:21 Freq: Status: Active Protocol: Document 07/28/21 10:30 MJB (Rec: 07/28/21 12:02 ARIANA [email or web address]) Therapy Assessment Status Assessment Status Assessment Status Evaluation Outpatient Past Medical History Past Medical History Source of Past Medical History Patient Neurological History Hx Transient Ischemic Attacks (TIA) Yes: POSSIBLE HISTORY 2014 Cardiovascular History Hx Congestive Heart Failure Yes Respiratory History Hx Sleep Apnea Yes: CPAP patient stated she does not use Gastrointestinal History Hx Appendectomy Yes Hx Cholecystectomy Yes Hx Gastroesophageal Reflux Disease Yes Hx Ulcer Yes Genitourinary History Hx Renal Disease Yes Hx Urinary Tract Infection Yes: REOCCURRING URINE INFECTIONS, STRESS INCONTINENCE Musculoskeletal History Hx Orthopedic Surgery Yes: R-HIP FX 05/2013, left knee replacement, surgery for broken hands Hx Other Musculoskeletal Disorders Yes: Ulcer removed from right foot (hammer toes) Hematological History Hx Anemia Yes Hx Blood Transfusions Yes Endocrine History Hx 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 HEENT History Hx Cataracts Yes: BILATERAL SURGERY Hx Dental Problems Yes: UPPER FULL DENTURES Integumentary History Hx Other Skin Disorders Yes: DRY Reproductive History Hx Abnormal Uterine Bleeding Yes Psychosocial History Hx Anxiety Yes Hx Depression Yes Pain History Has Past Pain Affected Your Daily Life Yes: BACK Effective Methods of Pain Control FENTANYL PATCH Anesthesia History Hx Anesthesia Reactions No Significant History Other History Hx Implanted Device Yes: R-HIP, L-KNEE, MULTIPLE STENTS Evaluation Information Problem Diagnosis Dysphagia R13.10 Onset 1-2 months ago Cause presbyesophagus and poor respiratory support Subjective Information Patient reported that she Query Text:As Reported By Patient/ began having swallowing Family
--- NOTE | 2021-08-11 14:25 | PCSTNOTE ---
On 08/11/21, the student, [Ariana Arreola], provided care and completed [employer] documentation on this patient. I have reviewed the student's documentation and agree with the findings.
--- NOTE | 2021-08-26 10:42 | PCSTNOTE ---
On 08/25/21, the student, [Ariana Arreola ], provided care and completed [email or web address] documentation on this patient. I have reviewed the student's documentation and agree with the findings.
--- NOTE | 2021-09-01 15:34 | PCSTNOTE ---
On 09/01/21, the student, [Ariana Arreola], provided care and completed [employer] documentation on this patient. I have reviewed the student's documentation and agree with the findings.
--- NOTE | 2021-09-28 15:41 | PCSTNOTE ---
Admitting Provider: Attending Provider: Jeferson Sanders MD Patient:Ami Da Silva Date of :1940 SPEECH THERAPY DISCHARGE Patient has not returned for any further treatments since 09/01/2021, therefore she will be discharged at this time. Patient?s initial visit was on 07/28/2021 and she had a total of 4 visits. The goals have been met. Patient met the goal for tolerating least restrictive diet with no overt s/s of aspiration (regular level 7 solids and level 0 thin fluids), use of trained compensatory techniques with no cues, oral motor exercises, laryngeal exercises, lingual backing exercises and respiratory exercises to improve airway protection. The patient is currently safe tolerating a regular diet and presents with WFL in oropharyngeal skills at this time. Thank you for referring this patient to [facility]. Please review, sign, date and return this discharge summary CONRAD. I have been updated about the patient's current status and I agree with discharge from the above service at this time. Referring Physician Date
== END 2021-09-01 10:06 | disposition home or self-care (01) ==
LOC: CHSST 11:00
PROVIDERS: PCP Otolaryngology; Visit Provider Internal Medicine
DX: J38.7 Other diseases of larynx (principal); R13.10 Dysphagia, unspecified
CPT/HCPCS: 92526; 92610

== ENCOUNTER 2021-09-08 11:50 | Outpatient (CLI) | payer MEDICARE, SELFPAY ==
[2021-09-08 15:43] LABS: SARS-CoV-2 RNA PCR Positive (Negative)
== END 2021-09-08 11:51 | disposition home or self-care (01) ==
LOC: CHSLAB 11:52
PROVIDERS: PCP Internal Medicine; Visit Provider Internal Medicine
DX: U07.1 COVID-19 (principal)
CPT/HCPCS: C9803; U0003; U0005

== ENCOUNTER 2021-09-09 13:49 | Outpatient (CLI) | payer MEDICARE, SELFPAY ==
[2021-09-09] MEDS: FAMOTIDINE 20 MG TABLET PO (14:47)
[2021-09-09] MEDS: ACETAMINOPHEN 325 MG TABLET 650 MG PO (14:47)
[2021-09-09] MEDS: diphenhydrAMINE HCl CAP 25 MG CAPSULE PO (14:47)
--- NOTE | 2021-09-09 15:54 | PC.NURSE ---
tolerated infusion. iv out. site is clean. taken out to waiting in car.
== END 2021-09-09 13:50 | disposition home or self-care (01) ==
PROVIDERS: PCP Internal Medicine; Visit Provider Internal Medicine
DX: U07.1 COVID-19 (principal)
CPT/HCPCS: A9270; M0243; Q0245

== ENCOUNTER 2021-09-27 14:46 | Outpatient (CLI) | payer MEDICARE, SELFPAY ==
--- NOTE | ~2021-09-27 | XR_ITS ---
EXAMINATION: [id number] EXAM DATE: 09/27/2021 15:16 INDICATION: No known recent injury provided at this time. Pain of the cervical spine when turning hea d. TECHNIQUE: Cervical spine frontal, lateral, lateral swimmers, and open-mouth odontoid projections. There is no prior study for comparison. FINDINGS: There is moderate disc disease at C5-6 and 6-7, mild at the other cervical levels. 2 mm an terolisthesis C4 on C5 and retrolisthesis C5 on C6. Severe cervical arthropathy causing neural forami nal stenosis. Moderate size thoracic endplate osteophytes. Lung apices unremarkable. Right carotid st ent. Odontoid process appears intact, no history of recent trauma was provided. There are some limita tions on the lateral due to earrings. IMPRESSION: 1. Severe cervical arthropathy. 2. Moderate lower cervical disc disease. Reviewed, dictated and finalized at location A. BLOCKER
== END 2021-09-27 14:47 | disposition home or self-care (01) ==
LOC: CHSIMG 14:47
PROVIDERS: PCP Internal Medicine; Visit Provider Internal Medicine
DX: M54.2 Cervicalgia (principal)
CPT/HCPCS: 72040

== ENCOUNTER 2021-10-18 09:41 | Outpatient (RCR) | payer MEDICARE, SELFPAY ==
--- NOTE | 2021-10-18 17:05 | PTOPEVAL ---
Thank you for referring Ami Da Silva to [facility].? The patient is scheduled to be seen for therapy? ____x/week for ___ weeks. Please review, sign, date and return this plan of care CONRAD. I agree with and certify that the following plan of care is medically necessary. Referring Physician Date Admitting Provider: Attending Provider: Jeferson Sanders MD Referring Provider: *PT Outpatient Evaluation Start: 10/18/21 09:59 Freq: Status: Active Protocol: Document 10/18/21 10:02 MIRACLE (Rec: 10/18/21 10:50 MIRACLE [id number]) Therapy Assessment Status Assessment Status Assessment Status Evaluation Outpatient Past Medical History Neurological History Hx Transient Ischemic Attacks (TIA) Yes: POSSIBLE HISTORY 2015 Cardiovascular History Hx Congestive Heart Failure Yes Respiratory History Hx Sleep Apnea Yes: CPAP patient stated she does not use Gastrointestinal History Hx Appendectomy Yes Hx Cholecystectomy Yes Hx Gastroesophageal Reflux Disease Yes Hx Ulcer Yes Genitourinary History Hx Renal Disease Yes Hx Urinary Tract Infection Yes: REOCCURING URINE INFECTIONS, STRESS INCONTINENCE Musculoskeletal History Hx Orthopedic Surgery Yes: R-HIP FX 05/2013, left knee replacement, surgery for broken hands Hx Other Musculoskeletal Disorders Yes: Ulcer removed from right foot (hammer toes) Hematological History Hx Anemia Yes Hx Blood Transfusions Yes Endocrine History Hx 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 HEENT History Hx Cataracts Yes: BILATERAL SURGERY Hx Dental Problems Yes: UPPER FULL DENTURES Integumentary History Hx Other Skin Disorders Yes: DRY Reproductive History Hx Abnormal Uterine Bleeding Yes Psychosocial History Hx Anxiety Yes Hx Depression Yes Pain History Has Past Pain Affected Your Daily Life Yes: BACK Effective Methods of Pain Control FENTANYL PATCH Anesthesia History Hx Anesthesia Reactions No Significant History Other History Hx Implanted Device Yes: R-HIP, L-KNEE, MULTIPLE STENTS Evaluation Information Problem Diagnosis neck pain Onset 07/25/21 Subjective Information Pt. reports that she developed Query Text:As Reported By Patient/ neck pain in July. She Family recalls no particular incident just a gradual onset of pain. She reports that she
== END 2021-11-16 23:59 | disposition home or self-care (01) ==
LOC: CHSPT 09:41
PROVIDERS: PCP Internal Medicine; Visit Provider Internal Medicine
DX: M54.2 Cervicalgia (principal)
CPT/HCPCS: 97014; 97110; 97140; 97161; G0283

== ENCOUNTER 2021-12-08 09:08 | Outpatient (CLI) | payer MEDICARE, SELFPAY ==
--- NOTE | ~2021-12-08 | XR_ITS ---
XR abdomen/kub 1V 12/08/2021 09:27 Indication: Abdomen pain. Complicated UTI. Procedure: KUB Comparison: 10/11/2018 Findings: Bowel gas pattern is nonobstructive. Moderate colonic fecal loading. There are cholecystect nikolas clips. There is extensive atherosclerosis of the abdomen and pelvis. There is a right total hip a rthroplasty partially visualized. There is compression fracture of L2 with vertebroplasty change. Impression: 1: Nonobstructive bowel gas pattern with moderate colonic fecal loading. Reviewed, dictated and finalized at location B. Impression: 1: Nonobstructive bowel gas pattern with moderate colonic fecal loading.
--- NOTE | ~2021-12-08 | CT_ITS ---
EXAMINATION: CT abdomen pelvis wo con DATE: 12/08/2021 09:28 INDICATION: Complicated urinary tract infection. TECHNIQUE: Computed tomography (CT) of the abdomen and pelvis was performed without intravenous contr ast. Automated exposure control and iterative reconstruction technique were employed. The dose-length product was 350.91 mGy-cm. COMPARISON: None. FINDINGS: The visualized portions of the lung bases demonstrate mild atelectasis and mild chronic jerome g disease. A calcified left lung nodule and calcified left hilar lymph nodes are consistent with old granulomatous disease. No pleural effusion. The heart size is normal. There are coronary artery calci fications. No pericardial effusion. A calcification in the liver is consistent with old granulomatous disease. There are changes of cholecystectomy. The spleen, pancreas, adrenal glands, and kidneys are normal. There is diverticulosis of the colon without evidence of diverticulitis. There are no dilate d loops of bowel. The appendix is not visualized. There are no pathologically enlarged lymph nodes. T here is no free intraperitoneal fluid. There is a total right hip arthroplasty. There is a chronic co mpression fracture of T11. There are chronic burst fractures of T12 and L2 with changes of vertebropl asty at L2. There is severe lumbar spondylosis and moderate thoracic spondylosis. IMPRESSION: 1. No urolithiasis. Reviewed, dictated and finalized at location A. IMPRESSION: 1. No urolithiasis.
== END 2021-12-08 09:09 | disposition home or self-care (01) ==
LOC: ANHIMG 09:11
PROVIDERS: PCP Internal Medicine; Visit Provider Nurse Practitioner Adult Health
DX: N39.0 Urinary tract infection, site not specified (principal); M48.55XA Collapsed vertebra, not elsewhere classified, thoracolumbar region, initial encounter for fracture; I25.10 Atherosclerotic heart disease of native coronary artery without angina pectoris; K57.30 Diverticulosis of large intestine without perforation or abscess without bleeding; M47.815 Spondylosis without myelopathy or radiculopathy, thoracolumbar region; M48.56XA Collapsed vertebra, not elsewhere classified, lumbar region, initial encounter for fracture
CPT/HCPCS: 74018; 74176

== ENCOUNTER 2021-12-12 11:26 | Outpatient (CLI) | payer MEDICARE, SELFPAY ==
--- NOTE | ~2021-12-12 | XR_ITS ---
XR chest 2V 12/12/2021 11:51 Indication: Pneumonitis. Cough. Procedure: 2 view chest Comparison: 03/22/2021 Findings: Mildly elevated right diaphragm with right basilar atelectasis. Heart size normal. No focal pneumonia, edema, pleural effusion or pneumothorax. There are chronic lower thoracic and upper lumba r compression fractures. Osteopenia. The lungs are hyperinflated which is consistent with, but not di agnostic of chronic obstructive pulmonary disease. Impression: 1: No acute cardiopulmonary disease. Reviewed, dictated and finalized at location A. Impression: 1: No acute cardiopulmonary disease.
[2021-12-12 11:39] LABS: Basophils Absolute Auto 0.04 K/mm3 (0.00-0.10); Basophils Percent Auto 0.9 % (0.0-1.0); Eosinophils Absolute Auto 0.35 K/mm3 (0.02-0.50); Eosinophils Percent Auto 7.7 % (1.0-6.0); Hematocrit 36.2 % (35.0-42.0); Hemoglobin 11.8 g/dL (11.7-13.8); Immature Granulocyte Absolute 0.02 K/mm3 (0.00-0.00); Immature Granulocyte Percent A 0.4 % (0.0-0.0); Lymphocytes Percent Auto 24.3 % (18.0-42.0); Mean Corpuscular HGB Conc 32.6 g/dL (32.0-36.0); Mean Corpuscular Volume 98.1 fL (78.0-102.0); Mean Platelet Volume 10.4 fl (9.2-11.8); Monocytes Absolute Auto 0.44 K/mm3 (0.10-0.90); Monocytes Percent Auto 9.7 % (2.0-11.0); Neutrophils Absolute Auto 2.6 K/mm3 (1.7-7.2); Platelet Count Result 172 K/mm3 (150-420); Red Blood Count 3.69 M/mm3 (4.20-5.40); Red Cell Distribution Width 14.4 % (11.6-14.4); White Blood Count 4.5 K/mm3 (4.8-10.8)
[2021-12-12 11:52] LABS: Hemoglobin A1C 6.4 % (<5.7)
[2021-12-12 11:54] LABS: Influenza Control Valid (Valid)
[2021-12-12 12:19] LABS: Alanine Aminotransferase 16 U/L (14-59); Albumin Level 3.5 g/dL (3.4-5.0); Alkaline Phosphatase 104 U/L (46-116); Anion Gap 8 mmol/L (8-16); Aspartate Amino Transferase 23 U/L (15-37); Bilirubin,Total 0.6 mg/dL (0.00-1.00); Blood Urea Nitrogen 36 mg/dL (7-18); Calcium 8.3 mg/dL (8.5-10.1); Carbon Dioxide 29 mmol/L (21-32); Chloride 101 mmol/L (98-108); Estimated Glomerular Filt Rate 31; Glucose 97 mg/dL (70-99); Osmolality Calculated 294 mOsm/kg (285-295); Potassium 3.7 mmol/L (3.5-5.1); Sodium 138 mmol/L (136-145); Total Protein 7.1 g/dL (6.4-8.2)
== END 2021-12-12 11:27 | disposition home or self-care (01) ==
LOC: CHSLAB 11:28
PROVIDERS: PCP Internal Medicine; Visit Provider Internal Medicine
DX: E11.9 Type 2 diabetes mellitus without complications (principal); J18.9 Pneumonia, unspecified organism
CPT/HCPCS: 71046; 80053; 83036; 85025; 87804

== ENCOUNTER 2022-07-21 11:58 | Outpatient (CLI) | payer MEDICARE, SELFPAY ==
[2022-07-21 12:13] VITALS: BP 118/67; PULSE 72; RESP 14; TEMP 36.4; O2SAT 97; BMI 27.5
[2022-07-21] MEDS: DENOSUMAB 60 MG/ML SYRINGE SUB-Q (12:25)
--- NOTE | 2022-07-21 12:29 | PC.NURSE ---
Patient here for Prolia injection. Education given. Reports had last year and had no problem. Prolia injection given. SEE MAR. Tolerated well. Will be called in December 2022 to set up another Prolia injection. Safe exit of hospital.
== END 2022-07-21 11:59 | disposition home or self-care (01) ==
PROVIDERS: PCP Internal Medicine; Visit Provider Internal Medicine
DX: M81.0 Age-related osteoporosis without current pathological fracture (principal)
CPT/HCPCS: 96372; J0897

== ENCOUNTER 2022-12-26 14:25 | Outpatient (CLI) | payer MEDICARE, SELFPAY ==
--- NOTE | ~2022-12-26 | CT_ITS ---
EXAMINATION: CT brain wo con DATE: 12/26/2022 14:51 INDICATION: Headache. Dizziness. TECHNIQUE: Computed tomography (CT) of the head was performed without intravenous contrast. The mA wa s adjusted according to patient size. Iterative reconstruction technique was employed. The dose-lengt h product was 605.33 mGy-cm. COMPARISON: Head CT 11/14/2019 FINDINGS: There is no intracranial hemorrhage, acute infarction, or abnormal intracranial mass lesion . There is an old infarct in right parietal lobe. There is an old infarct in left frontal lobe. There is an old infarct in left temporal lobe. There are scattered areas of low attenuation in the cerebra l white matter, which is within normal limits for the patient's age. There is no intracranial hemorrh age, acute infarction, or abnormal intracranial mass lesion. The ventricles are normal in size. The p aranasal sinuses are clear. The mastoid air cells are normal. There are likely changes of ocular lens replacement surgeries. 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 IMPRESSION: 1. 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 Reviewed, dictated and finalized at location A.
== END 2022-12-26 14:26 | disposition home or self-care (01) ==
PROVIDERS: PCP Internal Medicine; Visit Provider Internal Medicine
DX: R51.9 Headache, unspecified (principal); R42 Dizziness and giddiness; Z86.73 Personal history of transient ischemic attack (TIA), and cerebral infarction without residual deficits
CPT/HCPCS: 70450

== ENCOUNTER 2023-02-20 08:58 | Outpatient (CLI) | payer MEDICARE, SELFPAY ==
[2023-02-20] MEDS: DENOSUMAB 60 MG/ML SYRINGE SUB-Q (09:32)
[2023-02-20 09:33] VITALS: BMI 27.5
[2023-02-20 09:34] VITALS: BP 109/57; PULSE 60; RESP 14; TEMP 36.3; O2SAT 96
--- NOTE | 2023-02-20 09:35 | PC.NURSE ---
Patient here for q 6 month Prolia injection. Reports hasn't had problem yet with them. Education given. Prolia injection administered SEE MAR. tolerated well. Safe exit of hospital per w/c with .
== END 2023-02-20 08:59 | disposition home or self-care (01) ==
LOC: CHSTREATRM 09:04
PROVIDERS: PCP Internal Medicine; Visit Provider Internal Medicine
DX: M81.0 Age-related osteoporosis without current pathological fracture (principal)
CPT/HCPCS: 96372; J0897

== ENCOUNTER 2023-02-27 10:01 | Outpatient (CLI) | payer MEDICARE, SELFPAY ==
--- NOTE | ~2023-02-27 | US_ITS ---
EXAMINATION: US venous doppler [facility] DATE: 02/27/2023 11:18 INDICATION: Left lower limb swelling. TECHNIQUE: Grayscale ultrasound images without and with compression and Doppler ultrasound images of the bilateral lower extremity veins were obtained. COMPARISON: None. FINDINGS: The visualized portions of right common femoral vein, profunda (deep) femoral vein, femoral vein, pop liteal vein, peroneal veins, posterior tibial veins, and greater saphenous vein outflow are patent. The visualized portions of left common femoral vein, profunda femoral vein, femoral vein, and greater saphenous vein outflow are patent. There is thrombus in left popliteal, posterior tibial, and perone al veins. IMPRESSION: 1. Deep vein thrombosis involving left popliteal, posterior tibial, and peroneal veins. I called thi s result to Mary Rodriguez. Reviewed, dictated and finalized at location A. IMPRESSION: 1. Deep vein thrombosis involving left popliteal, posterior tibial, and perone al veins. I called this result to Mary Rodriguez.
[2023-02-27 12:28] LABS: Basophils Absolute Auto 0.08 K/mm3 (0.00-0.10); Basophils Percent Auto 0.7 % (0.0-1.0); Eosinophils Absolute Auto 0.22 K/mm3 (0.02-0.50); Eosinophils Percent Auto 2.1 % (1.0-6.0); Hematocrit 36.1 % (35.0-42.0); Hemoglobin 11.7 g/dL (11.7-13.8); Immature Granulocyte Absolute 0.09 K/mm3 (0.00-0.00); Immature Granulocyte Percent A 0.8 % (0.0-0.0); Lymphocytes Absolute Auto 1.46 K/mm3 (1.10-4.50); Lymphocytes Percent Auto 13.6 % (18.0-42.0); Mean Corpuscular HGB Conc 32.4 g/dL (32.0-36.0); Mean Corpuscular Hemoglobin 32.7 pg (27.0-31.0); Mean Corpuscular Volume 100.8 fL (78.0-102.0); Mean Platelet Volume 10.1 fl (9.2-11.8); Monocytes Absolute Auto 0.67 K/mm3 (0.10-0.90); Monocytes Percent Auto 6.3 % (2.0-11.0); Neutrophils Absolute Auto 8.2 K/mm3 (1.7-7.2); Neutrophils Percent Auto 76.5 % (50.0-70.0); Platelet Count Result 262 K/mm3 (150-420); Red Blood Count 3.58 M/mm3 (4.20-5.40); Red Cell Distribution Width 13.6 % (11.6-14.4); White Blood Count 10.7 K/mm3 (4.8-10.8)
[2023-02-27 12:40] LABS: INR 0.9; Partial Thromboplastin Time 23.7 SEC (23.90-30.70); Prothrombin Time 9.8 Seconds (9.50-12.10)
[2023-02-27 12:49] LABS: Alanine Aminotransferase 27 U/L (14-59); Albumin Level 3.3 g/dL (3.4-5.0); Alkaline Phosphatase 100 U/L (46-116); Anion Gap 9 mmol/L (8-16); Aspartate Amino Transferase 23 U/L (15-37); Bilirubin,Total 0.7 mg/dL (0.00-1.00); Blood Urea Nitrogen 34 mg/dL (7-18); Carbon Dioxide 26 mmol/L (21-32); Chloride 104 mmol/L (98-108); Estimated Glomerular Filt Rate 37; Glucose 186 mg/dL (70-99); NT Pro B Type Natriuretic Pept 2869 pg/mL (0-450); Osmolality Calculated 300 mOsm/kg (285-295); Potassium 5.4 mmol/L (3.5-5.1); Sodium 139 mmol/L (136-145); Total Protein 7.3 g/dL (6.4-8.2)
[2023-02-27 12:50] LABS: CRP < 0.5 mg/dL (0.0-0.9)
== END 2023-02-27 10:02 | disposition home or self-care (01) ==
PROVIDERS: PCP Internal Medicine; Visit Provider Nurse Practitioner Family
DX: M79.89 Other specified soft tissue disorders (principal); I50.9 Heart failure, unspecified; R23.3 Spontaneous ecchymoses; I82.432 Acute embolism and thrombosis of left popliteal vein; I82.442 Acute embolism and thrombosis of left tibial vein; I82.452 Acute embolism and thrombosis of left peroneal vein
CPT/HCPCS: 36415; 80053; 83880; 85025; 85610; 85730; 86140; 93970

== ENCOUNTER 2023-04-04 09:30 | Outpatient (CLI) | payer MEDICARE, SELFPAY ==
[2023-04-04 09:46] LABS: Basophils Absolute Auto 0.06 K/mm3 (0.00-0.10); Basophils Percent Auto 0.9 % (0.0-1.0); Eosinophils Absolute Auto 0.33 K/mm3 (0.02-0.50); Eosinophils Percent Auto 5.2 % (1.0-6.0); Hematocrit 35.2 % (35.0-42.0); Hemoglobin 11.2 g/dL (11.7-13.8); Immature Granulocyte Absolute 0.03 K/mm3 (0.00-0.00); Immature Granulocyte Percent A 0.5 % (0.0-0.0); Lymphocytes Absolute Auto 1.12 K/mm3 (1.10-4.50); Lymphocytes Percent Auto 17.7 % (18.0-42.0); Mean Corpuscular HGB Conc 31.8 g/dL (32.0-36.0); Mean Corpuscular Hemoglobin 32.8 pg (27.0-31.0); Mean Corpuscular Volume 103.2 fL (78.0-102.0); Mean Platelet Volume 10.4 fl (9.2-11.8); Monocytes Absolute Auto 0.65 K/mm3 (0.10-0.90); Monocytes Percent Auto 10.3 % (2.0-11.0); Neutrophils Absolute Auto 4.1 K/mm3 (1.7-7.2); Neutrophils Percent Auto 65.4 % (50.0-70.0); Platelet Count Result 217 K/mm3 (150-420); Red Blood Count 3.41 M/mm3 (4.20-5.40); Red Cell Distribution Width 13.4 % (11.6-14.4); White Blood Count 6.3 K/mm3 (4.8-10.8)
[2023-04-04 09:53] LABS: Appearance Urine Slightly Cloudy (Clear); Bilirubin Urine Negative (Negative); Blood Urine Trace-Intact (Negative); Color Urine Light Yellow (Yellow); Glucose Urine UA Negative (Negative); Ketones Urine Negative (Negative); Leukocyte Esterase Ur 2+ LEU/UL (Negative); Nitrate Urine Negative (Negative); Protein Urine 1+ (Negative); Specific Grav Ur 1.025 (1.010-1.020); Urobilinogen Urine 0.2 mg/dL (0.2-1.0); pH Urine 5.5 (5.0-8.0)
[2023-04-04 09:58] LABS: Add Urine Microscopic? YES; Bacteria Urine 2+ /hpf; Squamous Epithelial Cell Urine Few /hpf (Few); WBC Urine >75 /hpf (0-3)
[2023-04-04 10:42] LABS: Alanine Aminotransferase 22 U/L (14-59); Albumin Level 3.1 g/dL (3.4-5.0); Alkaline Phosphatase 77 U/L (46-116); Anion Gap 6 mmol/L (8-16); Aspartate Amino Transferase 17 U/L (15-37); Bilirubin,Total 0.4 mg/dL (0.00-1.00); Blood Urea Nitrogen 30 mg/dL (7-18); Calcium 8.6 mg/dL (8.5-10.1); Carbon Dioxide 26 mmol/L (21-32); Chloride 107 mmol/L (98-108); Cholesterol 186 mg/dL (0-200); Estimated Glomerular Filt Rate 34; Glucose 216 mg/dL (70-99); HDL Direct 60 mg/dL (40-60); LDL Cholesterol Calculated 68 mg/dL (<130); Osmolality Calculated 301 mOsm/kg (285-295); Potassium 4.5 mmol/L (3.5-5.1); Sodium 139 mmol/L (136-145); Thyroid Stimulating Hormone 3.79 uIU/mL (0.36-3.74); Total Protein 6.3 g/dL (6.4-8.2); Triglycerides 289 mg/dL (0-150)
== END 2023-04-04 09:31 | disposition home or self-care (01) ==
LOC: CHSLAB 09:33
PROVIDERS: PCP Internal Medicine; Visit Provider Internal Medicine
DX: I10 Essential (primary) hypertension (principal); N18.30 Chronic kidney disease, stage 3 unspecified; E11.9 Type 2 diabetes mellitus without complications; R82.90 Unspecified abnormal findings in urine
CPT/HCPCS: 36415; 80053; 80061; 81001; 83036; 84443; 85025; 87077; 87086; 87088; 87186

== ENCOUNTER 2024-01-31 10:09 | Outpatient (CLI) | payer MEDICARE, SELFPAY ==
--- NOTE | ~2024-01-31 | XR_ITS ---
Left Shoulder Technique: AP and scapular Y views were obtained. Clinical History: Pain Findings: No fracture or dislocation is seen. Osseous alignment is anatomic. The glenohumeral and acr omioclavicular joint spaces are preserved. Soft tissues are unremarkable. Impression: Unremarkable left shoulder radiographs. Reviewed, dictated and finalized at [facility]. Impression: Unremarkable left shoulder radiographs.
== END 2024-01-31 10:10 | disposition home or self-care (01) ==
LOC: CHSIMG 10:11
PROVIDERS: PCP Internal Medicine; Visit Provider Internal Medicine
DX: M25.512 Pain in left shoulder (principal)
CPT/HCPCS: 73030

== ENCOUNTER 2024-03-04 10:17 | Outpatient (CLI) | payer MEDICARE, SELFPAY ==
--- NOTE | ~2024-03-04 | XR_ITS ---
Thoracic spine: Clinical Indication: Back pain AP and lateral views were performed. There are moderate compression fracture deformities of T8, T11, T12, somewhat age indeterminate. Ther e is advanced facet arthropathy at the lower thoracic spine. There are mild degenerative disc changes . No subluxation evident. Impression: Moderate, age-indeterminate compression fractures of T8, T11, and T12. Reviewed, dictated and finalized at location . Impression: Moderate, age-indeterminate compression fractures of T8, T11, and T12.
--- NOTE | ~2024-03-04 | XR_ITS ---
Lumbosacral Spine: AP and lateral views Clinical History: Pain Findings: Compression fracture of L2 is present, severe, with vertebroplasty cement. Moderate eri amy fractures of T11 and T12 are present. There is 6 mm retrolisthesis of L2 over L3. There is 10 mm anterolisthesis of L4 over L5. There is severe facet arthropathy throughout the lumbar spine. There is moderate degenerative disc change at L5-S1. The sacroiliac joints are normally outlined. Impression: Age-indeterminate compression fractures of T11 and T12. Chronic severe L2 compression fracture with vertebroplasty cement. 6 mm retrolisthesis of L2 over L3. 10 mm anterolisthesis of L4 over L5. Moderate to severe degenerative spondylosis, as above. Reviewed, dictated and finalized at [facility]. Impression: Age-indeterminate compression fractures of T11 and T12. Chronic severe L2 compression fracture with vertebroplasty cement. 6 mm retrolisthesis of L2 over L3. 10 mm anterolisthesis of L4 over L5. Moderate to severe degenerative spondylosis, as above.
== END 2024-03-04 10:18 | disposition home or self-care (01) ==
LOC: CHSIMG 10:18
PROVIDERS: PCP Internal Medicine; Visit Provider Internal Medicine
DX: M54.50 Low back pain, unspecified (principal); M48.54XA Collapsed vertebra, not elsewhere classified, thoracic region, initial encounter for fracture; M43.16 Spondylolisthesis, lumbar region
CPT/HCPCS: 72072; 72100

== ENCOUNTER 2024-03-08 07:17 | Outpatient (CLI) | payer MEDICARE, SELFPAY ==
--- NOTE | ~2024-03-08 | MR_ITS ---
Procedure: MR thoracic spine wo con Ordering provider: Jeferson Sanders MD History: . Compression Fracture . Comparison: None. Technique: MRI thoracic spine without contrast. FINDINGS: SPINAL CORD: Normal. VERTEBRAL BODIES: Acute compression fracture is seen in T8. Chronic compression fracture is seen and T11 and T12. Old burst fracture is seen in L2. Bright signal is seen on T2-weighted images in T8. Ret ropulsed fragment is seen at the level of L2. DISK SPACES: Mild disc protrusion at the level of L4-L5 narrowing of the disc spaces T10 -T11, T11-T1 2 and T12-L1. Narrowing of the disc L1-L2 and L2-L3. STENOSIS: None. PARASPINOUS SOFT TISSUES: Edema is seen around T8. Hemorrhagic changes cannot be excluded. IMPRESSION: Acute Compression fracture of the level of T8 with surrounding edema or hemorrhagic changes. Loss of volume of about 30%. Chronic compression fracture of T11 and T12. Chronic burst fracture of L2 with retropulsed fragment. Disc protrusion at the level of T4/T5. Reviewed, dictated and finalized at location A. IMPRESSION: Acute Compression fracture of the level of T8 with surrounding edema or hemorrh agic changes. Loss of volume of about 30%. Chronic compression fracture of T11 and T12. Chronic burst fracture of L2 with retropulsed fragment. Disc protrusion at the level of T4/T5.
== END 2024-03-08 07:18 | disposition home or self-care (01) ==
PROVIDERS: PCP Internal Medicine; Visit Provider Internal Medicine
DX: S32.021A Stable burst fracture of second lumbar vertebra, initial encounter for closed fracture (principal); M48.54XA Collapsed vertebra, not elsewhere classified, thoracic region, initial encounter for fracture; M79.89 Other specified soft tissue disorders; M51.24 Other intervertebral disc displacement, thoracic region
CPT/HCPCS: 72146

== ENCOUNTER 2024-03-13 11:37 | Outpatient (CLI) | payer MEDICARE, SELFPAY ==
--- NOTE | ~2024-03-13 | DEXA_ITS ---
? Bone Density Report? Name:? PEDRO LUIS VIRAMONTES Patient ID:??? [id number] Age:? 83 Sex:? Female Ethnicity:? White Date of : 1940 Indication: postmenopausal; screening for osteoporosis; parental hip fracture; height loss; prior fracture; hysterectomy; rheumatoid arthritis; Referring Provider: SWAPNA, JUSTINA Alcocer Study: Bone densitometry was performed. Exam Date: March 13, 2024 Accession number: [id number] Bone Density: Region? BMD??? T-score? Z-score?? Classification AP Spine(L1, L3, L4)? 0.959?? -0.9?1.9? Normal Femoral Neck (Left)? 0.433?? -3.8? -1.3? Osteoporosis Total Hip (Left)? 0.578?? -3.0? -0.8? Osteoporosis Femoral Neck (Right)? 6.570?? 51.5? 54.0? Normal Total Hip (Right)? 4.402?? 28.4? 30.6? Normal Femoral Neck Mean? 3.501?? 23.9? 26.3? Normal Total Hip Mean? 2.490?? 12.7? 14.9? Normal World Health Organization criteria for BMD impression classify patients as: Normal (T-score at or above -1.0), Osteopenia (T-score between -1.0 and -2.5), or Osteoporosis (T-score at or below -2.5). 10-year Fracture Risk: FRAX not reported because: ? Some T-score for Spine Total or Hip Total or Femoral Neck at or below -2.5 ? Prior hip or vertebral fracture Clinical Information Provided by Patient: Have had a previous hip or vertebral fracture Has had a low trauma fracture Parent has had a hip fracture Has rheumatoid arthritis Has used the following medications: Prolia (i.e. denosumab) Has the following medical conditions: Hysterectomy Patient maximum height was 65 Menopause Age: 51 No regular weight bearing exercise Does not regularly consume dairy products Onset of menses at age 9 Number of children 4 Impression: The patient has established osteoporosis, based on the Left Femoral Neck T-score and the existence of a prior fracture. The patient has risk factors, including: parental hip fracture, previous fracture. Discussion: HIGH RISK OF FRACTURE. BONE DENSITY IS UNDESIRABLY LOW AT ONE OR MORE SKELETAL SITES, CONSISTENT WITH POSTMENOPAUSAL OSTEOPOROSIS. This patient's lowest T-score, in a patient who has previously fractured,? meets the World Health Organization's (WHO) criteria for severe osteoporosis. In untreated patients, the risk of osteoporotic fracture increases approximately two-fold for each 1.0 SD decrease in T-score.? Low bone density is not the only risk factor for fracture; also consider factors such as patient's age, frailty or poor health, risk of falling, risk of injury, previous osteoporotic fracture, family history of osteoporosis, cigarette smoking, low body weight, etc.? Not everyone with low bone mineral density has osteoporosis; os
== END 2024-03-13 11:38 | disposition home or self-care (01) ==
LOC: CHSIMG 11:39
PROVIDERS: PCP Internal Medicine; Visit Provider Nurse Practitioner Family
DX: Z78.0 Asymptomatic menopausal state (principal); M81.0 Age-related osteoporosis without current pathological fracture
CPT/HCPCS: 77080